=== PATIENT | female | born 1970 | race Caucasian/White ===

== ENCOUNTER 2020-06-30 13:14 | Outpatient (CLI) | payer MEDICARE, MEDICAID, SELFPAY ==
--- NOTE | 2020-06-30 13:17 | ECG_ITS ---
Measurements Intervals [place] Rate: 85 P: -65 AK: 119 QRS: 55 QRSD: 85 T: 60 QT: 350 QTc: 417 Interpretive Statements ECTOPIC ATRIAL RHYTHM BASELINE ARTIFACT- I, II, III, AVR, AVL, AVF ABNORMAL ECG Electronically Signed On 06-30-2020 15:06:17 CDT by Stanley Pappas D.O.
[2020-06-30 13:54] LABS: Anion Gap 10 mmol/L (8-16); Blood Urea Nitrogen 15 mg/dL (7-17); Calcium 9.8 mg/dL (8.4-10.2); Carbon Dioxide 27 mmol/L (22-30); Chloride 103 mmol/L (98-107); Estimated Glomerular Filt Rate > 60; Glucose 121 mg/dL (65-105); Potassium 3.9 mmol/L (3.4-5.0); Sodium 140 mmol/L (137-145)
== END 2020-06-30 13:15 | disposition home or self-care (01) ==
LOC: ANHSURGERY 13:16
PROVIDERS: Anesthesiology; PCP Internal Medicine; Visit Provider Orthopaedic Surgery
DX: Z01.818 Encounter for other preprocedural examination (principal); E11.9 Type 2 diabetes mellitus without complications; R94.31 Abnormal electrocardiogram [ECG] [EKG]
CPT/HCPCS: 36415; 80048; 93005

== ENCOUNTER 2020-07-06 01:09 | Outpatient (CLI) | payer MEDICARE, MEDICAID, SELFPAY ==
[2020-07-06 20:49] LABS: SARS-CoV-2 RNA PCR Negative
== END 2020-07-06 01:10 | disposition home or self-care (01) ==
LOC: ANHCOVIDDT 01:09
PROVIDERS: PCP Internal Medicine; Visit Provider Orthopaedic Surgery
DX: Z01.812 Encounter for preprocedural laboratory examination (principal); Z11.59 Encounter for screening for other viral diseases
CPT/HCPCS: 87635; C9803; U0003

== ENCOUNTER 2020-07-08 00:31 | Day surgery (SDC) | payer MEDICARE, MEDICAID, SELFPAY ==
[2020-06-29 10:02] VITALS: BMI 39.1
--- NOTE | 2020-07-08 07:40 | WPDHPUPDATE1 ---
History and Physical Update Update Date/Time: 07/08/20 07:40 History and Physical has been reviewed, including an updated exam of the patient. There are NO changes in the patient's condition. Risks, benefits, and alternatives have been discussed and questions answered. Patient agrees to proceed with procedure.
[2020-07-08 12:30] LABS: Glucose Point of Care 27 (65-105)
[2020-07-08 12:30] LABS: Glucose Point of Care 22 (65-105); Glucose Point of Care 23 (65-105)
[2020-07-08] MEDS: LACTATED RINGERS 1,000 ML 30 ML IV CONT (12:39)
[2020-07-08] MEDS: DEXTROSE 50% 25 GM/50 ML SYRINGE IV PUSH (12:40)
[2020-07-08] MEDS: ACETAMINOPHEN 500 MG TABLET 1000 MG PO (12:42)
--- NOTE | 2020-07-08 12:49 | WPDANESEPPF ---
Anes - Initial Pre Proc Eval Procedure: Operation Date: 07/08/20 13:30 Proposed Procedures p First Dorsal Compartment Release Left Wrist - Carson Galvez MD Date/Time: 07/08/20 12:49 Surgeon: Carson Galvez MD Pre Op Diagnosis: Radial Styloid Tenosynovitis Patient Data Age: 50 Gender: F Height: 5 ft 4 in Weight: 103.42 kg Allergies Allergy/AdvReac Type Severity Reaction Status Date / Time No Known Allergies Allergy Unverified 06/29/20 10:03 Home Medications Medication Instructions Recorded Confirmed Type atorvastatin 10 mg tablet 10 mg PO DAILY 01/11/20 06/29/20 History duloxetine 60 mg capsule,delayed 60 mg PO DAILY 01/11/20 06/29/20 History release sprinkle insulin aspart U-100 100 unit/mL 5 unit SUB-Q TID 01/11/20 06/29/20 History (3 mL) subcutaneous pen insulin glargine 100 unit/mL (3 10 unit SUB-Q HS 01/11/20 06/29/20 History mL) subcutaneous pen meloxicam 15 mg tablet 15 mg PO DAILY 01/11/20 06/29/20 History metformin 1,000 mg tablet 1,000 mg PO BID 01/11/20 06/29/20 History montelukast 10 mg tablet 10 mg PO DAILY 01/11/20 06/29/20 History omeprazole 20 mg capsule,delayed 20 mg PO DAILY 01/11/20 06/29/20 History release albuterol sulfate 2.5 mg INHALATION DIRECTED PRN 06/29/20 06/29/20 History albuterol sulfate [ProAir HFA] 1 inh INHALATION QID PRN 06/29/20 06/29/20 History Laboratory Tests 07/08/20 07/08/20 07/08/20 12:25 12:25 12:27 POC Capillary Glucose 22 mg/dl L* mg/dl 23 mg/dl L* mg/dl 27 mg/dl L* mg/dl (65-105) (65-105) (65-105) Patient hx anesthesia problems: none Family hx anesthesia problems: none PMFSH Past Medical History Medical History Arthritis Asthma De Quervain's tenosynovitis, left Diabetes Surgical History Surgical History History of History of cholecystectomy History of detached retina repair History of sinus surgery History of tonsillectomy Status post carpal tunnel release Status post trigger finger release Family History Family History Other Asthma Diabetes mellitus Family history of arthritis Family history of malignant neoplasm Social History Social History Smoking packs per day: 1 Smoking cigarettes per day: 20.0 Years smoked: 5 Smoking pack-years: 5.00 Smoking status: Former smoker Tobacco type: cigarettes Additional smoking assessment comments: QUIT 30 YEARS AGO Alcohol intake: current Drinks per week: 2 Spiritual care concerns: No Anes - Eval Final PreProcedure Day of Procedure 07/08/20 12:49 Patient weight: obese Heart: regular rate and rhythm Lungs: decreased breath sounds Airway: Mallampati scale class II Neurological: alert and oriented Last oral intake: >/= 8 hours ASA classification: III Emergent: no Anesthetic plan: proceed Anesthesia type and monitoring: general LMA and standard monitoring Other findings: d50,d5 1/2 NS Informed Consent: The patient's anesthetic plan and its attendant risks and benefits were discussed with the patient/family/POA. Questions were solicited and answers provided to the satisfaction of the patient/family/POA.
[2020-07-08] MEDS: KETOROLAC 15 MG/ML VIAL (*BKC) IV PUSH (12:50)
[2020-07-08] MEDS: DEXTROSE 5%/0.45% SOD CHL 1,000 ML 50 ML IV CONT (12:59)
[2020-07-08 13:03] LABS: Glucose Point of Care 118 (65-105)
--- NOTE | 2020-07-08 13:05 | SUR.PREOP ---
1230- CHECKED PT BLOOD SUGAR, RESULTED 23, RECHECKED RESULTED 22. RESTICK, NEW FINGER RESULTED 27. PT STATED SHE FELT GOOD. NO SYMPTOMS. PT STATED SHE TOOK 1/2 HER INSULIN DOSE THIS AM BECAUSE SHE WAS TOLD TO TO DO SO. CONTACTED DR. GALVAN AND HE STATED TO GIVE 1 AMP OF D50 AND START D5 1/2 NS. SENT A GLUCOSE DOWN TO LAB. 1302- RECHECKED BLOOD SUGAR RESULTED 118. REPORTED TO DR. TAMEZ
[2020-07-08 13:12] VITALS: BP 147/77; PULSE 84; TEMP 36.3; O2SAT 100
[2020-07-08 13:12] LABS: Glucose 157 mg/dL (65-105)
[2020-07-08] MEDS: ceFAZolin 2 GM/D5W 50 ML 2 GM/50 ML BAG IVPB (13:24)
[2020-07-08] MEDS: BUPIVACAINE/EPINEPHRINE 0.5% 10 ML VIAL INFILTRATE (13:34)
[2020-07-08 14:15] VITALS: BP 141/81; PULSE 86; RESP 15; TEMP 36.6; O2SAT 100
[2020-07-08 14:30] VITALS: BP 162/88; PULSE 82; RESP 16; O2SAT 100
[2020-07-08 14:32] LABS: Glucose Point of Care 117 (65-105)
[2020-07-08 14:45] VITALS: BP 154/77; PULSE 83; RESP 19; O2SAT 96
[2020-07-08 14:55] VITALS: BP 161/75; PULSE 80
[2020-07-08 15:25] VITALS: BP 150/73; PULSE 80
--- NOTE | 2020-07-08 15:47 | SUR.PHASEII ---
Patient unhooked from monitors and waiting for ride. Her original ride got a flat tire on the way so she arranged for another ride.
--- NOTE | 2020-07-08 16:36 | PM.PROC ---
Procedure Note - Detailed Date of procedure: 07/08/20 Pre-op diagnosis: Radial Styloid Tenosynovitis Post-op diagnosis: same Procedure performed: 1st dorsal extensor compartment release, left wrist. Anesthesia: GLMA Surgeon: Carson Galvez MD Estimated blood loss (mL): 5 Complications: None Disposition: PACU Findings: A general anesthetic was administered. The wrist was prepped and draped in usual sterile fashion. Well-padded tourniquet was placed on the upper arm. The limb was exsanguinated and the tourniquet inflated to 250 mmHg. A transverse incision was created 1 cm proximal to the tip of the radial styloid. Care was taken to protect the superficial radial nerve branches. Blunt dissection was carried down to the 1st dorsal compartment. The compartment was incised along its length longitudinally. The tendons were pulled free to confirm complete release. There were 3 tendon slips. No separate sheaths. Subtle white plaques were noted on the tendon consistent with previous injection. No evidence of tearing or other lesions. The wound was closed with 3-0 Prolene suture. A sterile dressing was applied with a bulky soft splint. Patient was extubated, and brought to the recovery room stable condition.
== END 2020-07-08 16:47 | disposition home or self-care (01) ==
PROVIDERS: Anesthesiology; PCP Internal Medicine; Visit Provider Orthopaedic Surgery
PROC: (CPT 25000; principal; 2020-07-08 13:30)
DX: M65.4 Radial styloid tenosynovitis [de Quervain] (principal); E11.9 Type 2 diabetes mellitus without complications; Z79.4 Long term (current) use of insulin; J45.909 Unspecified asthma, uncomplicated; E78.5 Hyperlipidemia, unspecified; E66.9 Obesity, unspecified; Z68.39 Body mass index [BMI] 39.0-39.9, adult; Z87.891 Personal history of nicotine dependence; Z79.51 Long term (current) use of inhaled steroids; Z79.899 Other long term (current) drug therapy
CPT/HCPCS: 25000; 36415; 82947; A9270; J0690; J1100; J1885; J2250; J2405; J2704; J3010; J7120

== ENCOUNTER 2023-07-09 00:43 | Day surgery (SDC) | payer MEDICARE, MEDICAID, SELFPAY ==
--- NOTE | 2023-07-03 17:02 | PC.NURSE ---
Report to the Outpatient Waiting Room, entrance under the green pavilion located off [facility], at time _0830_ on date 07/09/23. Planned Procedure Time: 1030_. Time changes happen often and if your time is changed the preop area will call you the afternoon before. - You and your visitor will be asked to self-screen and do not enter if you have any COVID symptoms. - A mask is optional within the hospital at this time. Patients may have clear liquids (water, carbonated beverages, clear teas, apple juice) until 3 hours prior to surgery with a maximum of 20 ounces. - No food from midnight until time of surgery - Infants may have breast milk until 4 hours before surgery, infant formula 6 hours prior to surgery. - Children will be allowed to drink immediately following surgery. If applicable, please bring a bottle or sippy cup to assist with drinking. Juice, water, soda, and popsicles are readily available. For infants on formula, please bring formula the day of surgery. Pacifiers are allowed. Take the following medications with a SIP of water the morning of surgery: __n/a DO NOT STOP ANY OF YOUR OTHER PRESCRIPTION MEDICATIONS PRIOR TO SURGERY ?EXCEPT THE FOLLOWING Medications to discontinue per physician ___supplements Date to take last dose_07/06/23 Please no make-up, nail guyanese, hairspray, perfume, deodorant, or body powder the day of surgery. No jewelry (including any body piercings) or valuables the day of surgery, leave them at home. Please take a shower or bath the night before, or the morning of, surgery with an antibacterial soap. Wear comfortable, loose fitting clothing. Children are encouraged to wear pajamas. - Jewelry must be removed prior to entering the operating room. Rings and piercings that are not removed may be cut off. - The hospital will not accept responsibility for valuables. - Please leave all valuables, including medications, at home the day of surgery. If you are going home after surgery, a licensed regional intermodal truck driver must drive you home. - NO public transportation without another adult if you receive anesthesia. - We recommend that an adult stay with you for 24 hours following discharge. - We also recommend that you do not drive, make important decision, drink alcoholic beverages, or take any drugs that were not prescribed by your health care provider for at least 24 hours after your discharge time. For Pediatric surgeries, we recommend two adults accompany the child home. Follow any additional instructions given to you from your surgeon. If you or anyone in your household have experienced Covid symptoms in the past week, please notify your surgeon or the nurse liaison at the phone number below for possible testing. Telephone instructions given to _Atiya Lyman_and asked if any additional questions and then verbalized understanding. Patient advised to call surgeon office or pre surgery nurse liaison [phone] if any additional questions.
[2023-07-09] VITALS (9 sets, daily range): BP systolic 114–142; BP diastolic 51–87; PULSE 62–74; RESP 2–20; TEMP 36.4–37; O2SAT 94–100
--- NOTE | 2023-07-09 07:26 | WPDHPUPDATE1 ---
History and Physical Update Update Date/Time: 07/09/23 07:26 History and Physical has been reviewed, including an updated exam of the patient. There are NO changes in the patient's condition. Risks, benefits, and alternatives have been discussed and questions answered. Patient agrees to proceed with procedure.
--- NOTE | 2023-07-09 07:57 | WPDANESEPPF ---
Anes - Initial Pre Proc Eval Procedure: Operation Date: 07/09/23 10:30 Proposed Procedures p First Dorsal Compartment Release of the Right Wrist - Carson Galvez MD Date/Time: 07/09/23 07:57 Surgeon: Carson Galvez MD Pre Op Diagnosis: right wrist dequervain's tendonitis Patient Data Age: 53 Gender: F Height: 1.6 m Weight: 77 kg Allergies Allergy/AdvReac Type Severity Reaction Status Date / Time No Known Allergies Allergy Verified 07/09/23 08:38 Home Medications Medication Instructions Recorded Confirmed Type atorvastatin 10 mg tablet 10 mg PO DAILY 01/11/20 07/09/23 History duloxetine 60 mg capsule,delayed 60 mg PO DAILY 01/11/20 07/09/23 History release sprinkle montelukast 10 mg tablet 10 mg PO DAILY 01/11/20 07/09/23 History omeprazole 20 mg capsule,delayed 20 mg PO DAILY 01/11/20 07/09/23 History release albuterol sulfate 2.5 mg/3 mL 2.5 mg inhalation DIRECTED PRN 06/29/20 07/09/23 History (0.083 %) solution for nebulization Shortness Of Breath albuterol sulfate 90 mcg/actuation 1 inh inhalation QID PRN Shortness 06/29/20 07/09/23 History aerosol inhaler (ProAir HFA) Of Breath biotin 10 mg tablet 10 mg PO DAILY 07/03/23 07/09/23 History collagen,hydrolysate 500 mg-biotin 1 cap PO DAILY 07/03/23 07/09/23 History 800 mcg-ascorbic acid 50 mg capsule (Collagen 1500 Plus C) potassium 20 mg chewable tablet 20 mg PO DAILY 07/03/23 07/09/23 History hydrocodone 5 mg-acetaminophen 325 1 - 2 tablet PO Q4-6H PRN pain #30 07/09/23 Rx mg tablet tabs Patient hx anesthesia problems: none Family hx anesthesia problems: none Results Review: All pre-operative results and documents have been reviewed as part of the pre-operative evaluation. [facility] Past Medical History Medical History (Updated 07/09/23 @ 09:55 by Charles Roland DO) Anxiety Arthritis Asthma De Quervain's tenosynovitis, left Surgical History Surgical History (Updated 07/09/23 @ 08:05 by Charles Roland DO) History of History of detached retina repair History of sinus surgery History of tonsillectomy Status post carpal tunnel release Status post trigger finger release Family History Family History Other Asthma Diabetes mellitus Family history of arthritis Family history of malignant neoplasm Social History Social History Smoking packs per day: 1 Smoking cigarettes per day: 20.0 Years smoked: 4 Smoking pack-years: 4.00 Smoking status: Former smoker Tobacco type: cigarettes Additional smoking assessment comments: QUIT 30 YEARS AGO Alcohol intake: never Drinks per week: 2 Substance use: never Lack of Transportation: No Lack of Food: Never True Current Housing: I Have Housing Concerned About Future Housing: No Difficulty Paying Gas/Electric Bills: No Difficulty Paying for Meds: No Currently Unemployed: No Education: Trade/Vocational Certificate Difficulty w/ Childcare or Family Care: No Living arrangements: with family Spiritual care concerns: No Anes - Eval Final PreProcedure Day of Procedure 07/09/23 07:57 Patient weight: obese Heart: regular rate and rhythm Lungs: clear to auscultation Airway: Mallampati scale class II Neurological: alert and oriented Last oral intake: >/= 8 hours ASA classification: II Emergent: no Anesthetic plan: proceed Anesthesia type and monitoring: general LMA and standard monitoring Results Review: All pre-operative results and documents have been reviewed as part of the pre-operative evaluation. Informed Consent: The patient's anesthetic plan and its attendant risks and benefits were discussed with the patient/family/POA. Questions were solicited and answers provided to the satisfaction of the patient/family/POA.
[2023-07-09] MEDS: ACETAMINOPHEN 500 MG TABLET 1000 MG PO (09:30)
[2023-07-09] MEDS: LACTATED RINGERS 1,000 ML 30 ML IV CONT ×2 (09:35→11:33)
[2023-07-09] MEDS: KETOROLAC 15 MG/ML VIAL (*BKC) IV PUSH (09:38)
[2023-07-09] MEDS: ceFAZolin 2 GM/D5W 50 ML 2 GM/50 ML BAG IVPB (10:20)
[2023-07-09] MEDS: BUPIVACAINE/EPINEPHRINE 0.5% 50 ML VIAL 10 ML INFILTRATE (10:47)
[2023-07-09] MEDS: fentaNYL CITRATE INJ (*CRX) 100 MCG/2 ML VIAL 25 MCG IV PUSH ×2 (11:53→11:58)
[2023-07-09] MEDS: oxyCODONE HCL (*CRX) 5 MG TAB IR PO (12:17)
--- NOTE | 2023-07-09 14:02 | P.OP_ITS ---
Procedure Note - Detailed Date of Procedure 07/09/23 Pre-op Diagnosis right wrist dequervain's tendonitis Post-op Diagnosis Same Procedure Performed 1st dorsal extensor compartment release, right wrist. Surgeon Carson Galvez MD Anesthesia General Description of Procedure A general anesthetic was administered. The wrist was prepped and draped in usual sterile fashion. Well-padded tourniquet was placed on the upper arm. The limb was exsanguinated and the tourniquet inflated to 250 mmHg. 4 ML of .25% M arcaine injected. A transverse incision was created 1 cm proximal to the tip of the radial styloid. Care was taken to protect the superficial radial nerve branches. Blunt dissection was carried down to the 1st dorsal compartment. The compartment was incised along its length longitudinally. The tendons were pulled free to confirm complete release. There were 3 tendon slips. The EPB was in a separate sheath that was released, confirming MCP extension. No evidence of tearing or other lesions. The wound was closed with 3-0 Monocryl and 3-0 Prolene suture. A sterile dressing was applied with a bulky soft splint. Patient was extubated, and brought to the recovery room stable condition. Tourniquet Time 1 Pathology None sent Complications No immediate complications Condition Stable Disposition PACU [facility] Billing Surgery - Charge Forward: Surgery Billing
== END 2023-07-09 13:05 | disposition home or self-care (01) ==
PROVIDERS: PCP Internal Medicine; Visit Provider Orthopaedic Surgery
PROC: (CPT 25000; principal; 2023-07-09 10:30)
DX: M65.4 Radial styloid tenosynovitis [de Quervain] (principal); F41.9 Anxiety disorder, unspecified; J45.909 Unspecified asthma, uncomplicated; Z79.51 Long term (current) use of inhaled steroids; Z87.891 Personal history of nicotine dependence; E66.9 Obesity, unspecified; Z68.29 Body mass index [BMI] 29.0-29.9, adult
CPT/HCPCS: 25000; A9270; J0690; J1100; J1885; J2250; J2405; J2704; J3010; J7120